=== PATIENT | female | born 1950 | race Caucasian/White ===

== ENCOUNTER → 2016-10-04 | Outpatient (CLI) | payer BC ==
[~2016-10-04] MED LIST: LISI-725 PO; MULT-506 PO; OMEG10007 PO; OXYC1TAB3 PO
[2016-10-04 09:52] LABS: BLOOD UREA NITROGEN 15 mg/dl (7-18); BUN/CREATININE RATIO 18.5 (10-20); CARBON DIOXIDE 26 mmol/L (21-32); CHLORIDE 108 mmol/L (98-107); CREATININE 0.81 mg/dl (0.60-1.20); GLUCOSE 91 mg/dl (70-99); POTASSIUM 3.8 mmol/L (3.5-5.1); SODIUM 143 mmol/L (136-145)
[2016-10-04 10:02] LABS: CHOLESTEROL 177 mg/dl (0-200); HDL CHOLESTEROL 44 mg/dl; LDL CHOLESTEROL CALCULATED 114 mg/dl; TRIGLYCERIDES 95 mg/dl (0-150); VERY LOW DENSITY LIPOPROT CALC 19 mg/dl
[2016-10-05 10:26] LABS: C-REACTIVE PROT HIGHSEN 2.7 MG/L
== END | disposition home or self-care (01) ==
LOC: C.LAB 07:23
DX: E78.5 Hyperlipidemia, unspecified (principal); I10 Essential (primary) hypertension